=== PATIENT | female | born 1990 ===

== ENCOUNTER 2017-12-31 04:24 | Emergency (ER) | payer OTHER ==
[2017-12-31 05:11] VITALS: BMI 30.4
--- NOTE | 2017-12-31 05:46 | OBHP ---
Datetime: 12/31/2017 05:15 IP Adm Impression: , intrauterine ; No Active Labor; Intact Membranes IP Admit Plan: Observation/Evaluation Admit Comment, IP Provider: 27yo IUP 34w noticed vaginal spotting after wiping/urinating at 3:30am. She felt the sensation like a gush (menses like) but when she looked it was a small amount) no CTX; no SROM; +FM PNC: CP/Dr Russell Chiu - chart rev'd - marinal previa on last sono - A positive PMH: denies PSH: ovarian cyst POBGYNH: - no std NKA PSoH: denies smoking ETOH drugs PFH: father DM A: IUP at 34w no evidence of VB currently marginal previa PLAN: check UA monitor for CTX/VB Pelvic Type - PN: Adequate Extremities - PN: Normal Abdomen - PN: Normal Back - PN: Normal Lungs - PN: Normal Heart - PN: Normal Neurologic - PN: Normal HEENT - PN: Normal General - PN: Normal FHR - Baseline A Provider: 135 Membranes, Provider: Intact Contraction Comments Provider: 0 Comments, ACOG Physical Exam: In NAD Abd soft NT SSE: (pt uncomfortable with exam - medium speculum) externally no blood noted vagina - no discharge - no blood/some pink discharge Cx closed - no Blood at cx Pool Provider: Negative IP Hx Assessment: The History has been Reviewed and is Current EGA AdmitDate IP: 34.1 IP Chief Complaint: Vaginal bleeding NICHD Variability Prov Fetus A: Moderate 6-25bpm NICHD Accel Fetus A IP Provider: [id number] FHR Category Provider Fetus A: Category I NICHD Decel Fetus A IP Provider: None Dilatation, Provider: 0 Genitourinary Exam: Normal
[2017-12-31 05:50] LABS: URINE BACTERIA RARE (<OCC); URINE BILIRUBIN NEGATIVE (NEGATIVE); URINE BLOOD SMALL (NEGATIVE); URINE CLARITY CLEAR (Clear); URINE COLOR COLORLESS (YELLOW); URINE GLUCOSE (UA) NEG (Normal); URINE LEUKOCYTE ESTERASE NEG Leu/uL (Negative); URINE PROTEIN NEGATIVE (NEGATIVE); URINE UROBILINOGEN 0.2-1.0 mg/dL (0.2-1.0)
[2017-12-31 07:18] LABS: BASO # 0.1 K/uL (0.0-0.2); BASO % 0.5 % (0.0-2.0); EOS # 0.2 K/uL (0.0-0.7); EOS % 1.2 % (0.0-4.0); HEMOGLOBIN 11.7 g/dL (12.0-16.0); LYMPH # 2.6 K/uL (1.0-4.3); LYMPH % 20.4 % (20.0-40.0); MEAN CELL VOLUME 90.2 fl (81.0-99.0); MEAN CORPUSCULAR HGB CONC 33.3 g/dL (33.0-37.0); MEAN PLATELET VOLUME 9.7 fl (7.2-11.7); MONO # 0.6 K/uL (0.0-0.8); MONO % 4.3 % (0.0-10.0); NEUT # 9.3 K/uL (1.8-7.0); NEUT % 73.6 % (50.0-75.0); NRBC % 0.3 % (0.0-0.0); RBC 3.88 Mil/uL (3.80-5.20); RED CELL DISTRIBUTION WIDTH 13.6 % (11.5-14.5); WHITE BLOOD COUNT 12.7 K/uL (4.8-10.8)
[2017-12-31] MEDS ORDERED: Betamethasone Soluspan 30 mg/5mL Inj Susp IM ONE (07:29)
[2017-12-31 13:51] VITALS: BP 106/61; PULSE 77; RESP 18; TEMP 98; O2SAT 99
== END 2017-12-31 08:20 | disposition home or self-care (01) ==
LOC: H.EROB2 04:24
DX: O26.853 Spotting complicating pregnancy, third trimester (principal); Z3A.34 34 weeks gestation of pregnancy